=== PATIENT | male | born 1960 | race Caucasian/White ===

== ENCOUNTER 2016-10-19 09:46 | Emergency (ER) | payer OTHER, BC ==
[2016-10-19 10:55] VITALS: BP 165/78
--- NOTE | 2016-10-19 11:31 | UC ---
Laceration HPI - HPI Summary HPI Summary: 56 male presents after an injury to his left index finger after getting it caught in a nut grinder machine today 10/19/16. He has a small laceration to his tip of index finger, sparing the nail. He has done it many times before. Has not lost a lot of blood. Has not taken anything for the pain. No numbness or tingling or loss of sensation. Does not know when his last tetanus was and will have it updated today. No other complaints or injuries. Denies pain with movement. - History Of Current Complaint Chief Complaint: UCLaceration Stated Complaint: FINGER LACERATION Hx Obtained From: Patient Laceration Location: Finger - left index Mechanism Of Injury: Sharp Trauma Onset/Duration: Sudden Onset Severity: Mild Pain Intensity: 5 Pain Scale Used: 0-10 Numeric Aggravating Factors: Nothing Related History: Dominant Hand Right - Allergies/Home Medications Allergies/Adverse Reactions: Allergies Allergy/AdvReac Type Severity Reaction Status Date / Time No Known Allergies Allergy Verified 10/11/15 09:48 PMH/Surg Hx/FS Hx/Imm Hx Endocrine History Of: Denies: Diabetes Cardiovascular History Of: Reports: Hypertension - Borderline Denies: Cardiac Disorders, Pacemaker/ICD Respiratory History Of: Denies: COPD, Asthma GI/ History Of: Denies: Ulcer Psychological History Of: Reports: Depression - ON MEDS - Surgical History Surgical History: None Surgery Procedure, Year, and Place: PROSTATECTOMY, 02/2015. 1966, TONSILECTOMY. wide excision melanoma left upper back-May 2015 - Family History Known Family History: Positive: Other - n/c - Social History Alcohol Use: Occasionally Alcohol Amount: 1 PER WEEK Substance Use Type: None Smoking Status (MU): Never Smoked Tobacco - Immunization History Most Recent Tetanus Shot: NOT UTD Review of Systems Constitutional: Negative Skin: Other - laceration to left index finger Eyes: Negative ENT: Negative Respiratory: Negative Cardiovascular: Negative Gastrointestinal: Negative Genitourinary: Negative Motor: Negative Neurovascular: Negative Musculoskeletal: Negative Neurological: Negative Psychological: Negative All Other Systems Reviewed And Are Negative: Yes Physical Exam Triage Information Reviewed: Yes Appearance: Well-Appearing, No Pain Distress, Well-Nourished Vital Signs: Initial Vital Signs Temp 98.2 F 10/19/16 10:51 Pulse 71 10/19/16 10:51 Resp 16 10/19/16 10:51 BP 165/78 10/19/16 10:51 Pulse Ox 98 10/19/16 10:51 BP elevated, patient is in pain and anxious. will be monitored. Vital Signs Reviewed: Yes Eyes: Positive: Conjunctiva Clear Neck: Positive: Supple, Nontender Respiratory: Positive: Chest non-tender, Lungs clear, Normal breath sounds Cardiovascular: Positive: RRR, No Murmur, Pulses Normal - 2+ radial bilateral, Brisk Capillary Refill - < 2 seconds Musculoskeletal: Positive: Strength Intact - sensory intact. no obvious bony deformities or dislocations. crepitus and step off not noted. no eccyhmosis noted, ROM Intact, Edema @ - minimal edema of tip of left index finger Neurological Exam: Normal Skin Exam: Other - 2 cm laceration to posterior/anterior left index digit at the tip. sparing nail. .5cm in depth. well-approximated. no foreign body noted Laceration Repair - Laceration Repair 1 Description: Linear Laceration Size After Repair: Length (cm) - 2, Width (mm), Depth (mm) - .5 Irrigation With Pressure Irrigation Device: Yes Closure Material: Skin Adhesive, SteriStrips - with dressing applied Suture Of: Skin Diagnostics - Radiology left index finger x-ray Xray Interpretation: No Acute Changes - soft tissue swelling but no other acute findings. Radiology Interpretation Completed By: Radiologist Laceration Course/Dx - Course/Dx Course Of Treatment: x-ray was obtained of left finger due to ARMANDO and was negative. patient did not want anything for pain. laceration was superficial and well approximated enough to be glued and steri-striped. a dressing was applied. told signs and symptoms to be aware of. tetanus updated. - Differential Dx - Laceration/Wound Differental Diagnoses: Foreign Body, Fracture, Laceration, Puncture Wound, Tendon Laceration Provider Diagnoses: laceration left index finger Discharge - Discharge Plan Condition: Improved Disposition: HOME Patient Education Materials: Finger Laceration (ED) Referrals: Carlito Soares MD [Primary Care Provider] - Additional Instructions: Keep dressing on for the next 24 hours, do not get it wet. You may change dressing afterwards. Watch for signs of infection such as redness, swelling, discharge and fever/chills. You may use neosporin on the area as needed. Take OTC Ibuprofen or Aleve for pain management. If symptoms worsen or bleeding reoccurs please return to .
--- NOTE | 2016-10-19 11:53 | RAD ---
Indication: Laceration distal LEFT second finger. Comparison: None. Technique: 3 views LEFT second finger. Report: Normal articular alignment. Negative for fracture. Soft tissue swelling greatest distally. Small calcification visualized along the expected course of the extensor tendon at the level of the distal metaphysis of the middle phalanx of doubtful clinical significance. No subcutaneous emphysema or suggestion of a retained foreign body. Minimal stigmata of osteoarthritis. IMPRESSION: Soft tissue swelling without additional acute finding.
[2016-10-19] MEDS ORDERED: Tetan/Diph/Pertus SYR(Tdap)* 0.5 ML SYR(BOOSTRIX) use SYR IM ONE ×2 (12:25→12:42)
== END 2016-10-19 12:40 | disposition home or self-care (01) ==
LOC: UCEAST 09:46
DX: S61.311A Laceration without foreign body of left index finger with damage to nail, initial encounter (principal); W31.1XXA Contact with metalworking machines, initial encounter; Y93.89 Activity, other specified; Y92.9 Unspecified place or not applicable; Z23 Encounter for immunization
CPT/HCPCS: 73140; 90715; 96372; 99202; G0463

== ENCOUNTER 2019-01-19 06:20 | Day surgery (SDC) | payer OTHER, BC ==
--- NOTE | 2019-01-08 18:23 | HP ---
PREOPERATIVE HISTORY AND PHYSICAL: DATE OF ADMISSION/SURGERY: 01/19/19 DATE OF OFFICE VISIT: 01/08/19 ATTENDING SURGEON: Dr. Jennifer Oliveros* (dictated by RITCHIE Amezcua). PROCEDURE: Left shoulder arthroscopic rotator cuff repair, decompression, debridement, and possible subpectoral biceps tenodesis. CHIEF COMPLAINT: Left shoulder pain. HISTORY OF PRESENT ILLNESS: Bryn is a 58-year-old male, who presents to the clinic for left shoulder pain due to a rotator cuff tear and biceps tendinitis. He has failed conservative measures and therefore agreed to undergo a left shoulder arthroscopic rotator cuff repair, decompression, debridement, and possible subpectoral biceps tenodesis with Dr. Oliveros on 01/19/19. PAST MEDICAL HISTORY: Prostate cancer, skin cancer, hypertension, and depression. PAST SURGICAL HISTORY: Prostate surgery, skin cancer excision, and tonsillectomy. The patient denies prior complications with anesthesia. MEDICATIONS: 1. Fluoxetine 30 mg as directed. 2. Aspirin 81 mg 1 by mouth every day. 3. Multivitamin 50+ one daily. 4. Cialis 5 mg 1 by mouth as needed. ALLERGIES: No known drug allergies. FAMILY HISTORY: Positive for diabetes, hypertension, stroke, and cancer. SOCIAL HISTORY: He lives with his spouse. 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 He denies tobacco use. He reports occasional alcohol consumption. He is right-hand dominant. REVIEW OF SYSTEMS: A 14-point review of systems was reviewed with the patient. Positive for current complaint, otherwise negative. Denies fever, chills, chest pain, shortness of breath, history of bleeding disorder, history of DVT or PE. PHYSICAL EXAMINATION GENERAL: A 58-year-old, well-developed, well-nourished male, in no acute distress. VITAL SIGNS: Height 72, weight 220, pulse 72, blood pressure 160/72, temperature 98.1, BMI 29.9. HEENT: Normocephalic, atraumatic. PERRLA. Throat clear. NECK: Supple. PULMONARY: Lungs are clear to auscultation bilaterally. No wheezing, rhonchi, or rales. CARDIO: Regular rate and rhythm. S1, S2. No murmurs, gallops, or rubs. No edema. ABDOMEN: Positive bowel sounds. Soft, nontender. NEURO: Alert and oriented x3. Cranial nerves grossly intact. MUSCULOSKELETAL: Left upper extremity: Skin is intact. No warmth or erythema. Tenderness to palpation of the subacromial space. Nontender over the AC joint. Forward flexion to 30, abduction to 45, passively forward flexion to 120, external rotation to 60, internal rotation to lumbar spine. +4/5 strength to rotator cuff testing with pain. Positive impingement, Speed's, Zamorano- Parmjit, [facility]. +2 radial pulse. Sensation intact to light touch distally. DIAGNOSTIC STUDIES: MRI revealed full-thickness tear of the supraspinatus in the anterior margin and infraspinatus tear with 1.7-cm retraction with subacromial bursitis, AC joint arthritis, and subscapularis tendinopathy with a partial intrasubstance tear. IMPRESSION: Left shoulder rotator cuff tear and biceps tendinitis. PLAN: The patient is scheduled to undergo a left shoulder arthroscopic rotator cuff repair, decompression, debridement, and possible subpectoral biceps tenodesis with Dr. Oliveros on 01/19/19. He will follow up 10 to 14 days postop for followup and suture removal. Percocet will be used for postop pain management. RITCHIE AMEZCUA [id number]/[facility] #: [id number] MTDBee
[~2019-01-19 06:20] MED LIST: Buffered Lidocaine 1% SYRIN* 1 ML/SYRINGE INTRADERM ONE; Famotidine IV* 10 MG/ML 2 ML (20 mg) IV ONE; Famotidine IV* 10 MG/ML 2 ML (20 mg) ONE; Lactated Ringers 1000 ML Bag* 1,000 ML IV SCH
[2019-01-19] MEDS ORDERED: ceFAZolin 2 GM PREMIX in ORs 2 GM/50 ML BAG IVPB ONE (06:25)
[2019-01-19] MEDS ORDERED: Bupivacaine 0.25% SDV* 30 ML ONE (06:46)
[2019-01-19] MEDS ORDERED: ROPIVACAINE 5 MG/ML 30 ML BTL (0.5%) ONE ×2 (07:04→07:25)
[2019-01-19] MEDS ORDERED: Midazolam* 1 MG/ML 5 ML VIAL (5 MG) ONE (07:22)
[2019-01-19] MEDS ORDERED: fentaNYL* 50 MCG/ML 2 ML VIAL (100 MCG VIAL) ONE (07:22)
[2019-01-19] MEDS ORDERED: KETAMINE HCL* 50 MG/ML 10 ML VIAL ONE (07:59)
[2019-01-19] MEDS ORDERED: Ondansetron INJ* 2 MG/ML VIAL ONE (08:05)
[2019-01-19] MEDS ORDERED: Dexamethasone IV* 4 MG/ML 1 ML (4 MG) ONE (08:05)
[2019-01-19] MEDS ORDERED: Propofol* 10 MG/ML 20 ML BTL ONE (08:05)
[2019-01-19] MEDS ORDERED: Lidocaine 2% PF * 5 ML VIAL ONE (08:05)
[2019-01-19] MEDS ORDERED: Ketorolac INJ* 30 MG/ML 1 ML VIAL ONE (08:05)
[2019-01-19] MEDS ORDERED: Acetaminophen TAB* 325 MG PO PRN (09:10)
[2019-01-19] MEDS ORDERED: HYDROmorphone INJ1* 1 MG/ML SYRINGE IV PRN (09:10)
[2019-01-19] MEDS ORDERED: oxyCODONE TAB* 5 MG TAB PO PRN (09:10)
[2019-01-19] MEDS ORDERED: Naloxone* 0.4 MG/ML 1 ML VIAL IV PRN (09:10)
[2019-01-19] MEDS ORDERED: DiMENhydriNATE IV* 50 MG/ML VIAL IV PUSH PRN (09:10)
[2019-01-19] MEDS ORDERED: Lidocaine 1%* 5 ML VIAL ONE (09:57)
[2019-01-19 10:28] VITALS: BP 138/79
--- NOTE | 2019-01-20 04:35 | OP ---
CC: PCP, Rick Soares MD * DATE OF OPERATION: 01/19/19 - LOCATED WITHIN [facility] DATE OF : 56 SURGEON: Jennifer Oliveros MD ELECTROLYSIS ENGINEER: RITCHIE Chapman. An triage assistant was needed for this case due to positioning and retraction and was utilized throughout the case. SECOND CONFERENCE MANAGER: [employer] student. ANESTHESIOLOGIST: Dr. Damon. ANESTHESIA: General with interscalene block. PRE-OP DIAGNOSIS: Left shoulder full-thickness tear of the rotator cuff, large tear with biceps tendinosis. POST-OP DIAGNOSIS: Left shoulder full-thickness tear of the rotator cuff, large tear with biceps tendinosis. OPERATIVE PROCEDURE: Left shoulder arthroscopy with: 1. Extensive glenohumeral debridement. 2. Subacromial decompression acromioplasty. 3. Rotator cuff repair double-row fashion, augmented with Regeneten patch. 4. Open biceps tenodesis. COMPLICATIONS: None. ESTIMATED BLOOD LOSS: Minimal. IMPLANTS USED: Two 4.75 Healicoils, two Multifixes, one Reteneten patch, and one Q-Fix 2.8 mm. INDICATIONS: Bryn Torres is a 58-year-old male who presented with acute left shoulder pain that happened in October. He was diagnosed with a full- thickness tear of the rotator cuff. After extensive discussion of the risks and benefits, operative versus nonoperative treatment and failure of conservative management, he has elected to proceed with surgical treatment. DESCRIPTION OF PROCEDURE: The patient was greeted in the preoperative area by the attending surgeon. Correct extremity was marked and consent was confirmed. The patient was brought back to the operating suite where he was placed in supine position on the operating table. The patient underwent interscalene nerve block by the anesthesiologist, after which he was brought back to the operating suite. He was placed in the supine position on the operating table and underwent general anesthesia and endotracheal intubation, after which he was placed in right lateral decubitus position and all bony prominences were padded. He was secured with a pegboard. The left arm was draped unsterile with 10 pounds traction. The left shoulder was prepped and draped in the usual sterile fashion beginning with chlorhexidine soap, scrub, alcohol wipe, and a final prep with ChloraPrep. After appropriate surgical pause indicating side, site, procedure, and administration of antibiotics, the standard postero-lateral portal was made sharply with an 11-blade. Scope was introduced into the joint. There was abundant synovitis throughout the entire joint. There was a full-thickness tear of the rotator cuff with some retraction involving supra and infraspinatus tendon. The glenohumeral joint had grade 0 to 1 changes. The inferior recess was intact with significant synovitis. The biceps had a tearing and fraying and was mildly subluxed anteriorly. There was undersurface tearing at the subscapularis. The anterior portal was made in an outside-in fashion. Shaver was used to debride back the anterior, posterior and superior labrum towards the undersurface of the subscap. The biceps was then tenotomized for later tenodesis. After the debridement was completed, attention was directed to subacromial space. With the scope positioned in subacromial space, lateral portal was made in an outside-in fashion. Shaver was used to debride back the abundant bursa and the rotator cuff had a large U-shaped tear. The undersurface of the acromion was skeletonized using electrocautery device. The 4-0 oval paola was then used to do an acromioplasty. This was taken all the way to the level of the AC joint. The all excess fluid and debris was removed and attention was directed to the cuff. The cuff was then carefully mobilized. The tissue was of good quality anteriorly and was easily mobilized the greater tuberosity was spread in the usual fashion, electrocautery device, rasp, and a 4-0 oval paola to gently decorticate. Then, through two separate stab incisions, two 4.75 Healicoils were placed with excellent purchase. The patient had excellent bone quality. The implant holes had to be tapped. The sutures were then passed in a horizontal mattress configuration and then tied down using arthroscopic knot tying technique. This involved some of the infraspinatus tendon and as we reapproximated the cuff to the greater tuberosity. One strand from each knot was then passed through an anterolaterally placed Multifix anchor for double row fixation. The remainder of 4 sutures were passed through a posterolaterally placed anchor which is a Multifix. This nicely compressed the cuff and because of the patient's young age and activity and the size of the tear, suture was used to augment this with a Regeneten Patch, size medium patch was then brought to the field and placed under arthroscopic guidance. Two cannulas were placed through the previously cannulas were placed through the previously placed separate stab incisions and we used to utilize medial tendon staple placement. Once this was done laterally, the patches was secured to the bone with PEEK umm. Final images were obtained. The wounds were then copiously irrigated. Attention was directed to the biceps. The bed was airplaned to the left side the anterior aspect of the shoulder was prepped again using a ChloraPrep. A 15 blade was used to make an incision along the biceps tendon. Soft tissue was carefully dissected to expose the pec fascia. Remainder of the dissection was done bluntly. The pec was elevated. Biceps was brought through the wound and the groove was prepared in the usual fashion using electrocautery device, red ball rasp, and an osteotome. The Q- Fix was deployed with excellent purchase and passed through the sutures in a Emanuel-Pedro type configuration and tied down. The wounds were then copiously irrigated with sterile saline. The anterior wound was closed with 3-0 Monocryl in layers. The portals were closed with 3-0 nylon. Sterile dressings were applied. A Cryo/Cuff and UltraSling were applied. He was awoken from anesthesia and transferred to the PACU in stable condition. POSTOPERATIVE PLAN: He will be nonweightbearing. He will be in a sling for 6 weeks. He will be discharged on pain medication. DVT prophylaxis was considered, but deferred due to no previous personal or family history. [id number]/[facility] #: [id number] BARTOLOME
== END 2019-01-19 10:45 | disposition home or self-care (01) ==
LOC: OREAST 06:20
PROVIDERS: ATTEND Orthopaedic Surgery
DX: S46.012A Strain of muscle(s) and tendon(s) of the rotator cuff of left shoulder, initial encounter (principal); M75.22 Bicipital tendinitis, left shoulder; I10 Essential (primary) hypertension; Z85.46 Personal history of malignant neoplasm of prostate; Z85.820 Personal history of malignant melanoma of skin; G89.18 Other acute postprocedural pain; X58.XXXA Exposure to other specified factors, initial encounter; Y92.9 Unspecified place or not applicable
CPT/HCPCS: 88304; C1713; C1776; J0690; J1100; J1885; J2250; J2405; J2704; J2795; J3010; J3490